=== PATIENT | female | born 1985 | race Native Hawaiian/Other Pacific Islander ===

== ENCOUNTER 2018-10-04 15:14 | Outpatient (CLI) | payer MEDICAID ==
[2018-10-04 16:03] LABS: APPEARANCE,URINE SLIGHTLY-CLOUDY; BILIRUBIN,URINE NEGATIVE (NEGATIVE); COLOR,URINE YELLOW; GLUCOSE, URINE NEGATIVE (NEGATIVE); KETONES,URINE TRACE mg/dL (NEGATIVE); LEUKOCYTE ESTERASE,URINE NEGATIVE (NEGATIVE); NITRITE,URINE NEGATIVE (NEGATIVE); PROTEIN,URINE NEGATIVE (NEGATIVE); URINE SPECIFIC GRAVITY 1.015; UROBILINOGEN,URINE NEGATIVE mg/dL (<2.0)
[2018-10-04 16:17] LABS: URINE AMPHETAMINES SCREEN NEGATIVE; URINE BARBITURATES SCREEN NEGATIVE; URINE BENZODIAZEPINES SCREEN NEGATIVE; URINE COCAINE SCREEN NEGATIVE; URINE MARIJUANA (THC) SCREEN NEGATIVE; URINE METHADONE SCREEN NEGATIVE; URINE PHENCYCLIDINE SCREEN NEGATIVE
--- NOTE | 2018-10-04 17:37 | RADIOLOGY REPORT (SQ) ---
EXAM DESCRIPTION: U/S OB LIMITED COMPLETED DATE/TIME: 10/04/2018 5:17 pm REASON FOR STUDY: cervical length. contractions COMPARISON: None. TECHNIQUE: Limited transabdominal grayscale ultrasound for evaluation of specific requested obstetri ayan parameters. LIMITATIONS: None. FINDINGS: CERVICAL LENGTH: 4.0 cm Closed. LAMONTE: 13 cm. FHR: 126 beats per minute. PRESENTATION: Cephalic. PLACENTA: Posterior ANATOMY: Not assessed OTHER: Composite ultrasound age 28 weeks 0 days. EFW 1110 g. IMPRESSION: LIMITED OBSTETRICAL ULTRASOUND WITH MEASURED PARAMETERS DELINEATED ABOVE. Trimester of : Third trimester - 28 weeks to delivery. TECHNICAL DOCUMENTATION: JOB ID: [id number] [id number] 2010 [employer]- All Rights Reserved Reading location - IP/workstation name: [email or web address]
== END 2018-10-04 17:41 | disposition home or self-care (01) ==
LOC: LC 15:14
PROVIDERS: ATTEND Obstetrics & Gynecology Gynecology
PROC: 4A1HXCZ Monitoring of Products of Conception, Cardiac Rate, External Approach (ICD-10-PCS; principal; 2018-10-04)
DX: O47.02 False labor before 37 completed weeks of gestation, second trimester (principal); Z3A.26 26 weeks gestation of pregnancy
CPT/HCPCS: 76815; 80307; 81001

== ENCOUNTER 2018-11-20 20:44 | Observation (INO) | payer MEDICAID ==
[2018-11-20] MEDS ORDERED: BETAMET ACET/BETAMET NA INJ 6 MG/1 ML IM ONE (21:16)
[2018-11-20] MEDS ORDERED: BETAMET ACET/BETAMET NA INJ 6 MG/1 ML ONE (21:19)
[2018-11-20 21:43] LABS: URINE AMPHETAMINES SCREEN NEGATIVE; URINE BARBITURATES SCREEN NEGATIVE; URINE BENZODIAZEPINES SCREEN NEGATIVE; URINE COCAINE SCREEN NEGATIVE; URINE MARIJUANA (THC) SCREEN NEGATIVE; URINE METHADONE SCREEN NEGATIVE; URINE PHENCYCLIDINE SCREEN NEGATIVE
[2018-11-20 21:44] LABS: APPEARANCE,URINE CLEAR; BILIRUBIN,URINE NEGATIVE (NEGATIVE); COLOR,URINE STRAW; GLUCOSE, URINE NEGATIVE (NEGATIVE); KETONES,URINE NEGATIVE (NEGATIVE); URINE SPECIFIC GRAVITY 1.012
[2018-11-20 21:45] LABS: LEUKOCYTE ESTERASE,URINE NEGATIVE (NEGATIVE); NITRITE,URINE NEGATIVE (NEGATIVE); PROTEIN,URINE NEGATIVE (NEGATIVE); UROBILINOGEN,URINE NEGATIVE mg/dL (<2.0)
[2018-11-20] MEDS ORDERED: HYDROXYZINE PAMOATE 50 MG CAPSULE PO ONE (22:36)
[2018-11-20] MEDS ORDERED: HYDROXYZINE PAMOATE 50 MG CAPSULE ONE (22:37)
--- NOTE | 2018-11-20 23:02 | RADIOLOGY REPORT (SQ) ---
EXAM DESCRIPTION: US LIMITED COMPLETED DATE/TME: 11/20/2018 00:00 CLINICAL HISTORY: 33 years, Female, vaginal bleeding COMPARISON: None. TECHNIQUE: Axial 2-D grayscale images of the pelvis were obtained. Doppler was utilized. LIMITATIONS: None. FINDINGS: Cervix is closed, measuring 3.5 cm in length. A single intrauterine fetus is identified. Measurements are as follows: Head circumference: 31.14 cm Biparietal diameter: 8.49 cm Abdominal circumference: 29.03 cm Femoral length: 6.38 cm Amniotic fluid index is 12.2 cm heart rate is 117 bpm Placenta is posterior in location, grade 2 Estimated gestational age is 33 weeks and 2 days with an estimated weight of 4 pounds and 12 ounces position is vertex. No other suspicious findings are identified. IMPRESSION: Single viable intrauterine , as above described. No acute sonographic finding. copyright 2010 [employer] All Rights Reserved
[2018-11-20 23:16] LABS: CHLAM PCR NOT DETECTED (NOT DETECT)
[2018-11-21] MEDS ORDERED: RINGERS SOLUTION,LACTATED 1,000 ML IV PRN (00:01)
--- NOTE | 2018-11-21 00:37 | Non Stress Test Report ---
Non Stress Test Datetime Report Generated by CPN: 11/21/2018 00:37 DEMOGRAPHIC EGA NST: 33.2 INDICATION Indication for Study: Ordered by Provider URINE RESULTS Urine Protein, NST: Negative Urine Ketones - NST: Negative Urine Glucose - NST: Negative Urine Blood - NST: Positive MONITORING Monitor Explained: Monitor Explained; Test Explained; Patient Verbalized Understanding Time on Monitor: 11/20/2018 21:02 Time off Monitor: 11/20/2018 23:58 NST Duration: 176 NST INTERVENTIONS NST Interventions: IV Fluids Physician Notified NST: Tom BABY A: [id number] BABY A Movement : Present FHR Baseline : 120 Accelerations : 15X15 Decelerations : None Variability : Moderate 6-25bpm NST Review: Meets Criteria for Reactive NST NST Review and Verified By : MERCED Kapoor NST Results: Reactive NST REPORT Report Trigger: Send Report
[2018-11-21 01:27] VITALS: BP 109/65
--- NOTE | 2018-11-21 03:45 | Admission Physical ---
Datetime Report Generated by CPN: 11/21/2018 03:45 CURRENT ADMISSION Chief Complaint: Uterine Contractions; Vaginal Bleeding Indication for Induction: Not Applicable Admit Impression : , Intrauterine ; Observation/Evaluation Admit Plan: Admit to Unit; Observation/Evaluation ALLERGIES Medication Allergies: Yes Medication Allergies: Penicillins/SV/swells the thro (10/04/2018) Latex: No Latex Allergies Food Allergies: None Environmental Allergies: None OBSTETRICAL HISTORY EDC: 01/06/2019 00:00 : 4 Para: 3 Term: 2 : 1 Ectopic: 0 Cesareans: 1 VBACs: 1 Multiple Births: 0 Gestational Diabetes: No Rh Sensitization: No Incompetent Cervix: No MEGAN: No Infertility: No ART Treatment: No Uterine Anomaly: No IUGR: No Hx Previous C/S: Yes Macrosomia: Yes Hx Loss/Stillborn: No PIH: No Hx : No Placenta Previa/Abruption: No Depression/PP Depression: Yes PTL/PROM: Yes Post Hemorrhage: No Current Procedures: Ultrasound Obstetrical History Comments: G1- 2003, @ 40 weeks G2- 2009, , 10lbs 0oz @ 42.5 weeks G3- 2015, , Deliveried at 34 weeks, PROM G4- Current, P17 starting at 17 weeks gestation, chronic anemia. SEE RECORDS Alcohol: No Marijuana : No Cocaine: No Other Illicit Drugs: No Cigarettes: Former Smoker. [id number] MEDICAL HISTORY Diabetes: No Blood Transfusion: Yes Pulmonary Disease (Asthma, TB): No Breast Disease: No Hypertension: No Manager Drug Surgery: No Heart Disease: No Hosp/Surgery: Yes Autoimmune Disorder: No Anesthetic Complications: No Kidney Disease: No Abnormal Pap Smear: No Neuro/Epilepsy: No Psychiatric Disorders: No Other Medical Diseases: No Hepatitis/Liver Disease: No Significant Family History: No Varicosities/Phlebitis: No Trauma/Violence : No Thyroid Dysfunction: No Medical History Comments: Blood transfusion 2015 for anemia , Hospitalization for childbirth INFECTIOUS HISTORY Gonorrhea: No Genital Herpes: No Chlamydia: No Tuberculosis: No Syphilis: No Hepatitis: No HIV/AIDS Exposure: No Rash or Viral Illness: No HPV: No PHYSICAL EXAM General: Normal HEENT: Normal Neurologic: Normal Thyroid: Normal Heart: Normal Lungs: Normal Breast: Normal Back: Normal Abdomen: Normal Genitourinary Exam: Normal Extremities: Normal DTRs: Normal Pelvic Type: Adequate Vital Signs: Within Normal Limits MEMBRANES Pooling: Negative Membranes: Intact FETUS A EGA: 33.3 Monitoring: External US FHR- Baseline: 120 Variability: Moderate 6-25bpm Accelerations: 10X10 Decelerations: None FHR Category: Category I Estimated Weight (gm): 2400 Presentation: Vertex Admit Comment: presented with episode of vaginal bleeding with no obvious source. Irregular contractions noted during evaluation. Amnisure negative. CL reassuring. GC/CZ neg. Steroids given. Admit for observation and completion of steroid protocol. PLANS FOR LABOR AND DELIVERY Labor and Delivery: None Pain Management: Epidural Feeding Preference: Breast Benefit of Breast Feed Discussed: Yes Circumcision: Yes INFORMED CONSENT Signature: with User ID: [email or web address]
--- NOTE | 2018-11-21 08:08 | PDOC DISCHARGE SUMMARY ---
General - Admit/Disc Date/PCP Admission Date/Primary Care Provider: 11/21/18 00:00 DEJAN DELGADO MD Discharge Date: 11/21/18 - Discharge Diagnosis (1) Is this a current diagnosis for this admission?: Yes (2) Vaginal bleeding during Is this a current diagnosis for this admission?: Yes - Additional Information Home Medications: Ferrous Sulfate [Iron] 1 tab PO DAILY 10/04/18 Pnv No.95/Ferrous Fum/Folic AC [ Vitamin Tablet] 1 tab PO DAILY 10/04/18 History of Present Illness History of Present Illness: SHANTANU RODRIGUEZ is a 33 year old female Hospital Course Hospital Course: presented with 2 hours of vaginal bleeding. workup negative including GC/CZ, CL of 3.7, negative amnisure. Patient admitted for OBS to receive steroids. Overnight pt had no further bleeding and contractions spaced out to irregular pattern at most. Patient notified staff that she desired to go home. Counseled that preferably she would stay to get second dose of steroids before discharge but insisting on going home. Counseled on pain, contractions, further bleeding to return sooner. Will allow discharge home. Physical Exam - Physical Exam Vital Signs: Temp Pulse Resp BP Pulse Ox 97.6 F 90 18 109/65 99 11/21/18 00:58 11/21/18 00:58 11/21/18 00:58 11/21/18 00:58 11/21/18 00:58 Result Laboratory Results: 11/20/18 21:00 Urine Color STRAW Urine Appearance CLEAR Urine pH 6.0 Ur Specific [place] 1.012 Urine Protein NEGATIVE Urine Glucose (UA) NEGATIVE Urine Ketones NEGATIVE Urine Blood LARGE H Urine Nitrite NEGATIVE Ur Leukocyte Esterase NEGATIVE Urine WBC (Auto) 2 Urine RBC (Auto) >182 Impressions: Obstetrics Ultrasound 11/20/18 00:00 IMPRESSION: Single viable intrauterine , as above described. No acute sonographic finding. copyright 2011 [employer]- All Rights Reserved Plan Discharge Plan: return this evening for second celestone injection for FLM Time Spent: Less than 30 Minutes Acute Heart Failure - Is this a Heart Failure Patient?: No
[2018-11-21] MEDS ORDERED: BETAMET ACET/BETAMET NA INJ 6 MG/1 ML IM ONE (21:35)
== END 2018-11-21 07:35 | disposition home or self-care (01) ==
LOC: LC 20:44 → LR 11-21 → 2N 11-21 00:39 → LR 11-21 04:00
PROVIDERS: ADMIT Obstetrics & Gynecology; ATTEND Obstetrics & Gynecology
PROC: 4A0HXCZ Measurement of Products of Conception, Cardiac Rate, External Approach (ICD-10-PCS; principal; 2018-11-21)
DX: O46.93 Antepartum hemorrhage, unspecified, third trimester (principal); O47.03 False labor before 37 completed weeks of gestation, third trimester; Z3A.33 33 weeks gestation of pregnancy
CPT/HCPCS: 59025; 96372; 81001; 87081; 80307; 87491; 87591; 84112; 76815; G0378; J3490 ×2; J0702; J7120

== ENCOUNTER 2018-11-21 20:55 | Outpatient (CLI) | payer MEDICAID ==
[2018-11-21] MEDS ORDERED: BETAMET ACET/BETAMET NA INJ 6 MG/1 ML IM ONE (21:06)
[2018-11-21] MEDS ORDERED: BETAMET ACET/BETAMET NA INJ 6 MG/1 ML ONE ×2 (21:32→21:33)
[2018-11-21 21:37] LABS: APPEARANCE,URINE HAZY; BILIRUBIN,URINE NEGATIVE (NEGATIVE); COLOR,URINE YELLOW; GLUCOSE, URINE NEGATIVE (NEGATIVE); KETONES,URINE NEGATIVE (NEGATIVE); LEUKOCYTE ESTERASE,URINE NEGATIVE (NEGATIVE); NITRITE,URINE NEGATIVE (NEGATIVE); PROTEIN,URINE NEGATIVE (NEGATIVE); URINE SPECIFIC GRAVITY 1.014; UROBILINOGEN,URINE NEGATIVE mg/dL (<2.0)
[2018-11-21 21:41] LABS: URINE AMPHETAMINES SCREEN NEGATIVE; URINE BARBITURATES SCREEN NEGATIVE; URINE BENZODIAZEPINES SCREEN NEGATIVE; URINE COCAINE SCREEN NEGATIVE; URINE MARIJUANA (THC) SCREEN NEGATIVE; URINE METHADONE SCREEN NEGATIVE; URINE PHENCYCLIDINE SCREEN NEGATIVE
--- NOTE | 2018-11-21 22:23 | Non Stress Test Report ---
Non Stress Test Datetime Report Generated by CPN: 11/21/2018 22:23 DEMOGRAPHIC EGA NST: 33.3 INDICATION Indication for Study: labor; Other Indication for Study (NST) Other: betamethasone admin 2nd dose URINE RESULTS Urine Protein, NST: Negative Urine Ketones - NST: Negative Urine Glucose - NST: Negative Urine Blood - NST: Negative MONITORING Monitor Explained: Monitor Explained; Test Explained; Patient Verbalized Understanding Time on Monitor: 11/21/2018 21:10 Time off Monitor: 11/21/2018 22:12 NST Duration: 62 NST INTERVENTIONS NST Interventions: PO Hydration Physician Notified NST: K.Welch BABY A: [id number] BABY A Movement : Present Contraction Frequency : one per hour FHR Baseline : 135 Accelerations : 15X15 Decelerations : None Variability : Moderate 6-25bpm NST Review and Verified By : Solomon Sanz RN NST Results: Reactive NST REPORT Report Trigger: Send Report
== END 2018-11-21 22:16 | disposition home or self-care (01) ==
LOC: LC 20:55
PROVIDERS: ATTEND Student in an Organized Health Care Education/Training Program
PROC: 4A1HXCZ Monitoring of Products of Conception, Cardiac Rate, External Approach (ICD-10-PCS; principal; 2018-11-21)
DX: O60.03 Preterm labor without delivery, third trimester (principal); Z3A.33 33 weeks gestation of pregnancy
CPT/HCPCS: 59025; 81001; 80307; J0702

== ENCOUNTER 2018-11-27 09:02 | Outpatient (CLI) | payer MEDICAID ==
[~2018-11-27 09:02] MED LIST: FERRIC CARBOXYMALTOSE 750 MG in NORMAL SALINE 250 ML IV PRN; NORMAL SALINE 250 ML IV PRN
[2018-11-27 09:19] VITALS: BP 109/67
[2018-11-27] MEDS ORDERED: DIPHENHYDRAMINE HCL 50 MG/ML VIAL ONE (11:13)
== END 2018-11-27 10:30 | disposition home or self-care (01) ==
LOC: II 09:02 → 5TH 09:23 → II 10:30
PROVIDERS: ATTEND Dermatology
PROC: 3E033GC Introduction of Other Therapeutic Substance into Peripheral Vein, Percutaneous Approach (ICD-10-PCS; principal; 2018-11-27)
DX: O99.019 Anemia complicating pregnancy, unspecified trimester (principal)
CPT/HCPCS: 96365; J1200; J7050; J1439

== ENCOUNTER 2018-12-04 08:39 | Outpatient (CLI) | payer MEDICAID ==
[2018-12-04 09:07] VITALS: BP 133/70
== END 2018-12-04 09:42 | disposition home or self-care (01) ==
LOC: II 08:39
PROVIDERS: ATTEND Specialist
PROC: 3E033GC Introduction of Other Therapeutic Substance into Peripheral Vein, Percutaneous Approach (ICD-10-PCS; principal; 2018-12-04)
DX: O99.019 Anemia complicating pregnancy, unspecified trimester (principal)
CPT/HCPCS: 96365; J7050; J1439

== ENCOUNTER 2018-12-09 19:16 | Outpatient (CLI) | payer MEDICAID ==
[2018-12-09 19:47] LABS: APPEARANCE,URINE SLIGHTLY-CLOUDY; BILIRUBIN,URINE NEGATIVE (NEGATIVE); COLOR,URINE AMBER; GLUCOSE, URINE NEGATIVE (NEGATIVE); KETONES,URINE 80 mg/dL (NEGATIVE); LEUKOCYTE ESTERASE,URINE TRACE (NEGATIVE); NITRITE,URINE NEGATIVE (NEGATIVE); PROTEIN,URINE 30 mg/dL (NEGATIVE); URINE SPECIFIC GRAVITY 1.026
[2018-12-09 20:02] LABS: URINE AMPHETAMINES SCREEN NEGATIVE; URINE BARBITURATES SCREEN NEGATIVE; URINE BENZODIAZEPINES SCREEN NEGATIVE; URINE COCAINE SCREEN NEGATIVE; URINE MARIJUANA (THC) SCREEN NEGATIVE; URINE METHADONE SCREEN NEGATIVE; URINE PHENCYCLIDINE SCREEN NEGATIVE
--- NOTE | 2018-12-09 22:12 | Non Stress Test Report ---
Non Stress Test Datetime Report Generated by CPN: 12/09/2018 22:12 DEMOGRAPHIC EGA NST: 36.0 INDICATION Indication for Study: Other Indication for Study (NST) Other: labor check MONITORING Monitor Explained: Monitor Explained; Test Explained; Patient Verbalized Understanding Time on Monitor: 12/09/2018 19:30 Time off Monitor: 12/09/2018 21:51 NST Duration: 141 NST INTERVENTIONS NST Interventions: PO Hydration BABY A: [id number] BABY A Movement : Present Contraction Frequency : irreg 3-6mins FHR Baseline : 130 Accelerations : 15X15 Decelerations : None Variability : Moderate 6-25bpm NST Review: Meets Criteria for Reactive NST NST Review and Verified By : MERCED Mcpherson NSJocelyne Results: Reactive NST REPORT Report Trigger: Send Report
== END 2018-12-09 21:57 | disposition home or self-care (01) ==
LOC: LC 19:16
PROVIDERS: ATTEND Student in an Organized Health Care Education/Training Program
PROC: 4A1HXCZ Monitoring of Products of Conception, Cardiac Rate, External Approach (ICD-10-PCS; principal; 2018-12-09)
DX: O47.03 False labor before 37 completed weeks of gestation, third trimester (principal); Z3A.36 36 weeks gestation of pregnancy
CPT/HCPCS: 59025; 80307; 81005

== ENCOUNTER 2018-12-11 22:17 | Inpatient (IN) | payer MEDICAID ==
--- NOTE | 2018-12-11 23:00 | Admission Physical ---
Datetime Report Generated by CPN: 12/11/2018 23:00 CURRENT ADMISSION Chief Complaint: Suspected Ruptured Membranes Chief Complaint Other: "my water broke at 10:00" Indication for Induction: Not Applicable Admit Impression : , Intrauterine ; Active Labor Admit Plan: Admit to Unit; Initiate Labor Protocol ALLERGIES Medication Allergies: Yes Medication Allergies: Penicillins/SV/swells the thro (12/11/2018) Latex: No Latex Allergies Food Allergies: None Environmental Allergies: None OBSTETRICAL HISTORY EDC: 01/06/2019 00:00 : 4 Para: 3 Term: 2 : 1 Ectopic: 0 Livin Cesareans: 1 VBACs: 1 Multiple Births: 0 Gestational Diabetes: No Rh Sensitization: No Incompetent Cervix: No MEGAN: No Infertility: No ART Treatment: No Uterine Anomaly: No IUGR: No Hx Previous C/S: Yes Macrosomia: Yes Hx Loss/Stillborn: No PIH: No Hx : No Placenta Previa/Abruption: No Depression/PP Depression: Yes PTL/PROM: Yes Post Hemorrhage: No Current Procedures: Ultrasound Obstetrical History Comments: G1- 2003, @ 40 weeks G2- 2009, , 10lbs 0oz @ 42.5 weeks G3- 2015, , Deliveried at 34 weeks, PROM G4- Current, P17 starting at 17 weeks gestation, chronic anemia. SEE RECORDS Alcohol: No Marijuana : No Cocaine: No Other Illicit Drugs: No Cigarettes: Former Smoker. [id number] MEDICAL HISTORY Diabetes: No Blood Transfusion: Yes Pulmonary Disease (Asthma, TB): No Breast Disease: No Hypertension: No Computer System Technician Surgery: No Heart Disease: No Hosp/Surgery: Yes Autoimmune Disorder: No Anesthetic Complications: No Kidney Disease: No Abnormal Pap Smear: No Neuro/Epilepsy: No Psychiatric Disorders: No Other Medical Diseases: No Hepatitis/Liver Disease: No Significant Family History: No Varicosities/Phlebitis: No Trauma/Violence : No Thyroid Dysfunction: No Medical History Comments: Blood transfusion 2016 for anemia , Hospitalization for childbirth INFECTIOUS HISTORY Gonorrhea: No Genital Herpes: No Chlamydia: No Tuberculosis: No Syphilis: No Hepatitis: No HIV/AIDS Exposure: No Rash or Viral Illness: No HPV: No PHYSICAL EXAM General: Normal HEENT: Normal Neurologic: Normal Thyroid: Normal Heart: Normal Lungs: Normal Breast: Normal Back: Normal Abdomen: Normal Genitourinary Exam: Normal Extremities: Normal DTRs: Normal Pelvic Type: Adequate Vital Signs: Reviewed; Within Normal Limits VAGINAL EXAM Dilatation: 4 Effacement: 50 Station: -2 Contraction Comments: irregular MEMBRANES Pooling: Positive Membranes: Ruptured Amniotic Fluid Color: Clear FETUS A EGA: 36.2 Monitoring: External US FHR- Baseline: 120s Variability: Moderate 6-25bpm Accelerations: 15X15 Decelerations: None FHR Category: Category I Estimated Weight (gm): 2400 Presentation: Vertex Admit Comment: with an IUP at 36-2/7 wks presents to the L_D c/o that her water broke at 2200, while at the movies. She reports good movement. GBS unknown. She is annemarie irregularly. She has no other co-morbidities. PLANS FOR LABOR AND DELIVERY Labor and Delivery: None Pain Management: Epidural Feeding Preference: Breast Benefit of Breast Feed Discussed: Yes Circumcision: Yes INFORMED CONSENT Signature: with User ID: Carlos
[2018-12-11] MEDS ORDERED: CLINDAMYCIN 900 MG/D5W RTU 900 MG/50 ML RTUPB IV ONE ×2 (23:22→23:30)
[2018-12-11] MEDS ORDERED: LIDOCAINE 1% INJ-PF (10 MG/ML) 30 ML SDV ONE (23:26)
[2018-12-11] MEDS ORDERED: OXYTOCIN 10 UNIT/ML VIAL ONE (23:26)
[2018-12-11] MEDS ORDERED: OXYTOCIN/NORMAL SALINE 20 UNIT/1,000 ML RTUINJ ONE (23:26)
[2018-12-11] MEDS ORDERED: MISOPROSTOL 0.2 MG TABLET ONE (23:26)
[2018-12-11] MEDS ORDERED: RINGERS SOLUTION,LACTATED 1,000 ML IV ONE (23:30)
[2018-12-11 23:45] LABS: URINE AMPHETAMINES SCREEN NEGATIVE; URINE BARBITURATES SCREEN NEGATIVE; URINE BENZODIAZEPINES SCREEN NEGATIVE; URINE COCAINE SCREEN NEGATIVE; URINE MARIJUANA (THC) SCREEN NEGATIVE; URINE METHADONE SCREEN NEGATIVE; URINE PHENCYCLIDINE SCREEN NEGATIVE
[2018-12-11 23:46] LABS: HEMOGLOBIN 9.4 g/dL (12.0-15.5); MEAN CORPUSCULAR HEMOGLOBIN 25.5 pg (27.0-33.4); MEAN CORPUSCULAR HGB CONC 33.6 g/dL (32.0-36.0); MEAN CORPUSCULAR VOLUME 76 fl (80-97); PLATELET COUNT 141 10^3/uL (150-450); RED BLOOD COUNT 3.69 10^6/uL (3.72-5.28); RED CELL DISTRIBUTION WIDTH 24.2 % (11.5-14.0); WHITE BLOOD COUNT 5.8 10^3/uL (4.0-10.5)
[2018-12-12 00:01] LABS: ABSOLUTE LYMPHOCYTES# (MANUAL) 1.2 10^3/uL (0.5-4.7); ABSOLUTE MONOCYTES # (MANUAL) 0.7 10^3/uL (0.1-1.4); ANISOCYTOSIS 3+; BAND NEUTROPHILS % (MANUAL) 3 % (3-5); BASOPHILS % (MANUAL) 1 % (0-2); EOSINOPHILS % (MANUAL) 1 % (0-6); HYPOCHROMASIA 2+; LYMPHOCYTES % (MANUAL) 20 % (13-45); MONOCYTES % (MANUAL) 12 % (3-13); POLYCHROMASIA 1+; SEGMENTED NEUTROPHILS % (MAN) 62 % (42-78); TOTAL CELLS COUNTED 100
[2018-12-12 00:02] LABS: PLATELET COMMENT ADEQUATE
[2018-12-12 00:17] LABS: APPEARANCE,URINE CLOUDY; BILIRUBIN,URINE NEGATIVE (NEGATIVE); COLOR,URINE YELLOW; GLUCOSE, URINE NEGATIVE (NEGATIVE); KETONES,URINE NEGATIVE (NEGATIVE); LEUKOCYTE ESTERASE,URINE NEGATIVE (NEGATIVE); NITRITE,URINE NEGATIVE (NEGATIVE); PROTEIN,URINE 100 mg/dL (NEGATIVE); URINE SPECIFIC GRAVITY 1.006; UROBILINOGEN,URINE NEGATIVE mg/dL (<2.0)
[2018-12-12] MEDS ORDERED: OXYTOCIN/NORMAL SALINE 20 UNIT/1,000 ML RTUINJ IV PRN ×2 (00:23→17:48)
[2018-12-12] MEDS ORDERED: RINGERS SOLUTION,LACTATED 1,000 ML IV PRN (00:49)
[2018-12-12] MEDS ORDERED: FENTANYL CITRATE INJ/PF 100 MCG/2 ML AMPUL ONE (01:13)
[2018-12-12] MEDS ORDERED: PHENYLEPHRINE HCL INJ/PF 10 MG/1 ML SDV ONE (01:13)
[2018-12-12] MEDS ORDERED: FENTANYL/BUPIVACAINE/NS/PF 300 MCG/150 ML RTUINJ EPI ONE ×2 (01:14→14:21)
[2018-12-12] MEDS ORDERED: BUPIVACAINE HCL 0.25 % INJ/PF (2.5 MG/1 ML) 30 ML VIAL ONE (01:14)
[2018-12-12] MEDS ORDERED: EPHEDRINE SULFATE INJ 50 MG/1 ML AMPULE ONE (01:14)
[2018-12-12] MEDS ORDERED: CLINDAMYCIN 900 MG/D5W RTU 900 MG/50 ML RTUPB IV ONE ×2 (07:29→15:32)
[2018-12-12] MEDS: CLINDAMYCIN 900 MG/D5W RTU 900 MG/50 ML RTUPB IV SCH ×2 (07:41→15:34)
[2018-12-12] MEDS ORDERED: OXYTOCIN/NORMAL SALINE 20 UNIT/1,000 ML RTUINJ ONE (13:18)
[2018-12-12] MEDS ORDERED: ACETAMINOPHEN 650 MG SUPP.RECT PR PRN (17:48)
[2018-12-12] MEDS ORDERED: PROMETHAZINE HCL 25 MG TABLET PO PRN (17:48)
[2018-12-12] MEDS ORDERED: BENZOCAINE/MENTHOL AEROSOL SPRAY 56 ML TOP PRN (17:48)
[2018-12-12] MEDS ORDERED: PROMETHAZINE HCL INJ 25 MG/1 ML VIAL IV PRN (17:48)
[2018-12-12] MEDS ORDERED: DIPHENHYDRAMINE HCL 25 MG CAPSULE PO PRN (17:48)
[2018-12-12] MEDS ORDERED: PROMETHAZINE HCL 25 MG SUPP.RECT PR PRN (17:48)
[2018-12-12] MEDS ORDERED: NA PHOS,M-B/NA PHOS,DI-BA (ADULT) 133 ML ENEMA PR PRN (17:48)
[2018-12-12] MEDS ORDERED: MEASLES,MUMPS&RUBELLA VACC/PF 0.5 ML VIAL SUBCUT PRN (17:48)
[2018-12-12] MEDS ORDERED: ZOLPIDEM TARTRATE 5 MG TABLET PO PRN (17:48)
[2018-12-12] MEDS ORDERED: ACETAMINOPHEN WITH CODEINE #3 TABLET PO PRN ×2 (17:48)
[2018-12-12] MEDS ORDERED: PSEUDOEPHEDRINE HCL 30 MG TABLET PO PRN (17:48)
[2018-12-12] MEDS ORDERED: DIPH/PERTUSS(ACELL)/TETANUS VAC/PF 0.5 ML SYR (>=10YO) IM PRN (17:48)
[2018-12-12] MEDS ORDERED: DIBUCAINE 1% OINTMENT 56 GM TP PRN (17:48)
[2018-12-12] MEDS ORDERED: GLYCERIN/WITCH HAZEL LEAF 1 EACH MED..WIPE TP PRN (17:48)
[2018-12-12] MEDS ORDERED: MAGNESIUM HYDROXIDE SUSP 30 ML UDCUP PO PRN (17:48)
--- NOTE | 2018-12-12 18:02 | Warning Signs in Babies ---
VOD Warning Signs Datetime Report Generated by [facility]: 12/12/2018 18:01 VOD#608 -Warning Signs in Babies: Viewed with Parent(s)/Family (12/12/2018 17:50:Denae Hilton RN)
[2018-12-12] MEDS ORDERED: BENZOCAINE/MENTHOL AEROSOL SPRAY 56 ML ONE (18:50)
--- NOTE | 2018-12-12 18:59 | Delivery Summary ---
Del Sum A-C Datetime Report Generated by CPN: 12/12/2018 18:59 DELIVERY PERSONNEL DELIVERY PERSONNEL: [id number] Delivery Doctor:: Aimee Sanot MD Labor and Delivery Nurse:: Denae Hilton RNcharge account authorizer Nurse:: Trista Zarate RN Criminal Profiler/MANAGER COMMERCIAL REAL ESTATE: Radha Quarles, [employer] CREWMEMBER MATERNAL INFORMATION Delivery Anesthesia: Epidural Medications After Delivery: Pitocin Drip 20 Units/1000ml NSS Estimated Blood Loss (ml): 300 Delivery QBL: 300 Maternal Complications: None Provider Comments: placed on mom's abdomen after delivery to promote bonding and better transition. Delayed cord clamping performed. Cord blood collected. Repair of 2nd degree vaginal laceration after use of local. Patient and tolerated procedure well. [place] on maternal abdomen bonding/transitioning well. LABOR SUMMARY EDC: 01/06/2019 00:00 No. Babies in Womb: 1 Attempted: Yes Labor Anesthesia: Epidural LABOR INFORMATION Reason for Induction: Not Applicable Onset of Labor: 12/12/2018 15:00 Complete Dilatation: 12/12/2018 17:06 Cervical Ripening Agents: Cytotec @ 50 mcg po Oxytocin: Augmentation Group B Beta Strep: 1 NO GROUP B STREPTOCOCCUS RECOVERED Antibiotics # of Doses: 2 Antibiotics Time of Last Dose: 1536 Name of Antibiotic Given: clindamycin Steroids Given: Full Course Reason Steroids Not Administered: Maternal Indication MEMBRANES Membranes Rupture Method: Artificial Rupture of Membranes: 12/11/2018 22:10 Length of Rupture (hr): 19.10 Amniotic Fluid Color: Clear Amniotic Fluid Amount: Scant Amniotic Fluid Odor: None STAGES OF LABOR Stage 1 hr: 2 Stage 1 min: 6 Stage 2 hr: 0 Stage 2 min: 10 Stage 3 hr: 0 Stage 3 min: 3 Total Time in Labor hr: 2 Total Time in Labor min: 19 VAGINAL DELIVERY Episiotomy: None Laceration #1: Vaginal Laceration Extension #1: Second Degree Laceration Repair: Yes Laceration Repair Note: Repair of 2nd degree vaginal with extension to inferior portion of the left labia minora. Repaired with 2-0 vicryl with running locked suture for hemostasis. Local anesthetic used prior to repair 2nd to epidural not working. Sponge Count Correct: N/A Sharps Count Correct: Yes Count Comment: Lap, 4x4 and sharps all accounted for after delivery CSECTION DELIVERY Primary Indication: N/A Secondary Indication: N/A CSection Incidence: N/A Labor: N/A Elective: N/A CSection Incision: N/A BABY A INFORMATION Infant Delivery Date/Time: 12/12/2018 17:16 Method of Delivery: Vaginal Born in Route : No : Successful Forceps: N/A Vacuum Extraction: N/A Shoulder Dystocia : No PRESENTATION/POSITION BABY A Presentation: Cephalic Cephalic Presentation: Vertex Vertex Position: Right Occipital Anterior Breech Presentation: N/A PLACENTA INFORMATION BABY A Placenta Delivery Time : 12/12/2018 17:19 Placenta Method of Delivery: Expressed Placenta Status: Delivered SCORES BABY A Heart Rate 1 min: >100 bpm Resp Effort 1 min: Good Cry Reflex Irritability 1 min: Cough or Sneeze or Pulls Away Muscle Tone 1 min: Active Motion Color 1 min: Body [place], Extremities Blue Resuscitation Effort 1 min: Tactile Stimulation SCORE 1 MIN: 9 Heart Rate 5 min: >100 bpm Resp Effort 5 min: Good Cry Reflex Irritability 5 min: Cough or Sneeze or Pulls Away Muscle Tone 5 min: Active Motion Color 5 min: Body [place], Extremities Blue SCORE 5 MIN: 9 INFORMATION BABY A Gestational Age at Delivery: 36.3 Gestational Status: Late - 34- 36.6 Weeks Outcome : Liveborn Condition : Stable Sex: Male IDENTIFICATION BABY A Infant Verification Date/Time: 12/12/2018 17:16 ID Band Number: [id number] Mother's Name Verified: Yes RN Verifying Infant: B Sissy RN/M Yobani RN CORD INFORMATION BABY A No. Cord Vessels: 3 Nuchal Cord : N/A Cord Blood Taken: Yes-For Eval (Mom's Blood Type - or O+) Infant Suction: Mouth; Nose (Annotations: Data stored by [facility] on behalf of user) ASSESSMENT BABY A Infant Complications: None Physical Findings at Delivery: [place]ones[place] Spots Infant Respirations: Appears Normal Skin to Skin: Yes Hr Administrator/ALS Called : No Infant Care By: V Monk RN BABY B INFORMATION : N/A SIGNATURES Signature: with User ID: [email or web address]
[2018-12-12] MEDS: IBUPROFEN 800 MG TABLET PO SCH (22:25)
[2018-12-12] MEDS: FAMOTIDINE 20 MG TABLET PO SCH (22:25)
[2018-12-12] MEDS: DOCUSATE SODIUM 100 MG CAPSULE PO SCH (22:39)
[2018-12-12] MEDS: FERROUS SULFATE 325 MG TABLET PO SCH (22:39)
[2018-12-13] MEDS: IBUPROFEN 800 MG TABLET PO SCH ×3 (06:04→21:51)
[2018-12-13 07:38] LABS: HEMOGLOBIN 9.9 g/dL (12.0-15.5); MEAN CORPUSCULAR HEMOGLOBIN 25.7 pg (27.0-33.4); MEAN CORPUSCULAR HGB CONC 34.1 g/dL (32.0-36.0); MEAN CORPUSCULAR VOLUME 75 fl (80-97); PLATELET COUNT 167 10^3/uL (150-450); RED BLOOD COUNT 3.85 10^6/uL (3.72-5.28); RED CELL DISTRIBUTION WIDTH 25.4 % (11.5-14.0); WHITE BLOOD COUNT 8.1 10^3/uL (4.0-10.5)
--- NOTE | 2018-12-13 08:53 | PDOC PROGRESS REPORT ---
Subjective-OB Progress Note for:: 12/13/18 Subjective: Doing well, no c/o, ready to go home, voiding, eating well Physical Exam (OB) Vital Signs: Temp Pulse Resp BP Pulse Ox 99.2 F 88 16 117/68 99 12/12/18 20:20 12/12/18 20:20 12/12/18 20:20 12/12/18 20:20 12/12/18 20:20 Intake & Output 12/12/18 12/13/18 12/14/18 06:59 06:59 06:59 Intake Total 50 Balance 50 Weight 99.9 kg - PIH/Pre-Eclampsia Headache: Absent Epigastric Pain: No Visual Changes: No - Lochia Lochia Amount: Small 10-25 ml Lochia Color: Rubra/Red - Abdomen Description: Soft Hernia Present: No Fundal Description: Firm, Midline Fundal Height: u/u - u/2 Objective-Diagnostic Laboratory: 12/13/18 06:40 12/13/18 06:40 WBC 8.1 RBC 3.85 Hgb 9.9 L Hct 29.0 L MCV 75 L MCH 25.7 L MCHC 34.1 RDW 25.4 H Plt Count 167 Assessment and Plan(PN) - Assessment and Plan (1) Vaginal bleeding Is this a current diagnosis for this admission?: Yes - Time Spent with Patient Time with patient: Less than 15 minutes Medications reviewed and adjusted accordingly: Yes - Disposition Anticipated Discharge: Home Within: within 24 hours
[2018-12-13] MEDS: SENNOSIDES/DOCUSATE 8.6-50 MG 1 EACH TABLET PO SCH (09:32)
[2018-12-13] MEDS: PRENATAL VITAMIN W DHA CAPSULE PO SCH (09:32)
[2018-12-13] MEDS: DOCUSATE SODIUM 100 MG CAPSULE PO SCH ×2 (09:32→17:56)
[2018-12-13] MEDS: FERROUS SULFATE 325 MG TABLET PO SCH ×2 (09:32→17:56)
[2018-12-13] MEDS: FAMOTIDINE 20 MG TABLET PO SCH ×2 (09:32→21:51)
[2018-12-14] MEDS: IBUPROFEN 800 MG TABLET PO SCH ×2 (06:55→13:49)
[2018-12-14 08:10] VITALS: BP 110/72
[2018-12-14] MEDS: SENNOSIDES/DOCUSATE 8.6-50 MG 1 EACH TABLET PO SCH (09:25)
[2018-12-14] MEDS: FERROUS SULFATE 325 MG TABLET PO SCH ×2 (09:25→17:44)
[2018-12-14] MEDS: PRENATAL VITAMIN W DHA CAPSULE PO SCH (09:25)
[2018-12-14] MEDS: FAMOTIDINE 20 MG TABLET PO SCH (09:25)
[2018-12-14] MEDS: DOCUSATE SODIUM 100 MG CAPSULE PO SCH ×2 (09:25→17:44)
--- NOTE | 2018-12-14 09:47 | PDOC DISCHARGE SUMMARY ---
Final Diagnosis Discharge Date: 12/14/18 - Final Diagnosis (1) Anemia complicating , third trimester Is this a current diagnosis for this admission?: Yes (2) Obstetric labial laceration, delivered, current hospitalization Is this a current diagnosis for this admission?: Yes (3) Obstetric vaginal laceration with second degree perineal laceration Is this a current diagnosis for this admission?: Yes (4) delivery Is this a current diagnosis for this admission?: Yes (5) premature rupture of membranes (PPROM) delivered, current hospitalization Is this a current diagnosis for this admission?: Yes (6) (vaginal after ) Is this a current diagnosis for this admission?: Yes Discharge Data - Discharge Medication Prescriptions: Ibuprofen [Motrin 800 mg Tablet] 800 mg PO Q8HP PRN #30 tablet PRN Reason: Abdominal Cramping Docusate Sodium [Colace 100 mg Capsule] 100 mg PO BID #60 capsule Ferrous Sulfate [Iron] 1 tab PO BID #60 tablet Home Medications: Pnv No.95/Ferrous Fum/Folic AC [ Vitamin Tablet] 1 tab PO DAILY 10/04/18 Docusate Sodium [Colace 100 mg Capsule] 100 mg PO BID #60 capsule 12/14/18 Ferrous Sulfate [Iron] 1 tab PO BID #60 tablet 12/14/18 Ibuprofen [Motrin 800 mg Tablet] 800 mg PO Q8HP PRN #30 tablet 12/14/18 Reason(s) for Admission: Onset of Labor, Labor Procedures: Ultrasound Intrapartum Procedure(s): Spontaneous Vaginal Delivery - Complication(s): Laceration-Vaginal, Laceration-Labial Laceration-Degree: 2nd - Diagnosis Test Laboratory: Temp Pulse Resp BP Pulse Ox 97.9 F 67 16 110/72 98 12/14/18 07:32 12/14/18 07:32 12/14/18 07:32 12/14/18 07:32 12/14/18 07:32 12/11/18 12/11/18 12/13/18 22:35 23:23 06:40 RBC 3.69 L 3.85 Hgb 9.4 L 9.9 L Hct 28.0 L 29.0 L Urine Opiates Screen NEGATIVE - Discharge information/Instructions Discharge Activity: Activity As Tolerated, Balance Activity w/Rest, No Lifting Over 10 Pounds, Pelvic Rest, No tub bath, Walk Frequently Discharge Diet: As Tolerated, Regular Disposition: HOME, SELF-CARE Follow up with: [facility] in: 5, Weeks
== END 2018-12-14 22:52 | disposition home or self-care (01) | DRG 807 ==
LOC: LC 22:17 → LR 22:31 → 2S 12-12 20:03
PROVIDERS: ADMIT Obstetrics & Gynecology; ATTEND Obstetrics & Gynecology
PROC: 10E0XZZ Delivery of Products of Conception, External Approach (ICD-10-PCS; principal; 2018-12-12)
PROC: 0KQM0ZZ Repair Perineum Muscle, Open Approach (ICD-10-PCS; 2018-12-12)
DX: O60.14X0 Preterm labor third trimester with preterm delivery third trimester, not applicable or unspecified (principal); Z37.0 Single live birth; O42.913 Preterm premature rupture of membranes, unspecified as to length of time between rupture and onset of labor, third trimester; O70.1 Second degree perineal laceration during delivery; O99.02 Anemia complicating childbirth; O99.824 Streptococcus B carrier state complicating childbirth; O34.219 Maternal care for unspecified type scar from previous cesarean delivery; D64.9 Anemia, unspecified; Z3A.36 36 weeks gestation of pregnancy; Z87.891 Personal history of nicotine dependence; Z88.0 Allergy status to penicillin
CPT/HCPCS: 36415; 80307; 81005; 85025; 85027; 86592; 86850; 86900; 86901; 94760; J2370; J2590; J3010; J3490

== ENCOUNTER 2020-04-08 13:43 | Emergency (ER) | payer MEDICAID ==
--- NOTE | 2020-04-08 14:07 | ER Document Report ---
ED Medical Screen (RME) - General Chief Complaint: Weakness Stated Complaint: WEAKNESS Time Seen by Provider: 04/08/20 13:58 Primary Care Provider: RASHMI MONDRAGON MD [Primary Care Provider] - Follow up as needed Notes: Patient is a 35-year-old female presents emergency department with a chief complaint of weakness. Patient states that she has felt weak for the past few days. Patient reports that she gets 2 menstrual cycles in 1 month. Patient has history of anemia. Patient has been tested multiple times for COVID-19 [address] of employment, which is [employer] in [place]. They have all been negative. Patient states that she was treated for strep pharyngitis with azithromycin 2 days ago. States that she continues to have white spots on her tonsils. Exam: Clear breath sounds throughout all lung anderson. We will retest the patient for strep to see if it has cleared. Basic labs ordered. I have greeted and performed a rapid initial assessment of this patient. A comprehensive ED assessment and evaluation of the patient, analysis of test results and completion of medical decision making process will be conducted by an additional ED providers. TRAVEL OUTSIDE OF THE [place] IN LAST 30 DAYS: No - Related Data Allergies/Adverse Reactions: Penicillins Allergy (Severe, Verified 04/08/20 13:58) swells the throat cillins Allergy (Uncoded 04/08/20 13:58) Past Medical History - Social History Chew tobacco use (# tins/day): No Frequency of alcohol use: Occasional Drug Abuse: None Renal/ Medical History: Reports: Hx Ovarian Cysts Past Surgical History: Reports: Hx Section - 1 - Immunizations Hx Diphtheria, Pertussis, Tetanus Vaccination: Yes Physical Exam - Vital signs Vitals: Temp Pulse Resp BP Pulse Ox 97.8 F 89 16 119/75 99 04/08/20 13:48 04/08/20 13:48 04/08/20 13:48 04/08/20 13:48 04/08/20 13:48 Course - Vital Signs Vital signs: Temp Pulse Resp BP Pulse Ox 97.8 F 89 16 119/75 99 04/08/20 13:48 04/08/20 13:48 04/08/20 13:48 04/08/20 13:48 04/08/20 13:48 Doctor's Discharge - Discharge Referrals: RASHMI MONDRAGON MD [Primary Care Provider] - Follow up as needed
[2020-04-08 14:34] LABS: ABSOLUTE EOSINOPHILS # (AUTO) 0.2 10^3/uL (0.0-0.6); ABSOLUTE MONOCYTES (AUTO) 0.7 10^3/uL (0.1-1.4); ABSOLUTE NEUT (AUTO) 6.2 10^3/uL (1.7-8.2); BASOPHILS % (AUTO) 0.4 % (0-2); HEMATOCRIT 40.9 % (36.0-47.0); HEMOGLOBIN 14.2 g/dL (12.0-15.5); LYMPHOCYTES % (AUTO) 22.2 % (13-45); MEAN CORPUSCULAR HEMOGLOBIN 30.2 pg (27.0-33.4); MEAN CORPUSCULAR HGB CONC 34.7 g/dL (32.0-36.0); MEAN CORPUSCULAR VOLUME 87 fl (80-97); MONOCYTES % (AUTO) 7.1 % (3-13); PLATELET COUNT 273 10^3/uL (150-450); RED BLOOD COUNT 4.71 10^6/uL (3.72-5.28); RED CELL DISTRIBUTION WIDTH 13.3 % (11.5-14.0); SEGMENTED NEUTROPHILS % (AUTO) 68.3 % (42-78); TOTAL CELLS COUNTED % (AUTO) 100 %; WHITE BLOOD COUNT 9.1 10^3/uL (4.0-10.5)
[2020-04-08 14:48] LABS: APPEARANCE,URINE CLEAR; BILIRUBIN,URINE NEGATIVE (NEGATIVE); COLOR,URINE YELLOW; GLUCOSE, URINE NEGATIVE (NEGATIVE); KETONES,URINE TRACE mg/dL (NEGATIVE); LEUKOCYTE ESTERASE,URINE NEGATIVE (NEGATIVE); NITRITE,URINE NEGATIVE (NEGATIVE); PROTEIN,URINE NEGATIVE (NEGATIVE); URINE SPECIFIC GRAVITY 1.025
[2020-04-08 14:51] LABS: ALBUMIN 4.7 g/dL (3.5-5.0); ALKALINE PHOSPHATASE 57 U/L (38-126); ANION GAP 9 (5-19); ASPARTATE AMINO TRANSFERASE 30 U/L (14-36); BILIRUBIN,TOTAL 0.6 mg/dL (0.2-1.3); BLOOD UREA NITROGEN 14 mg/dL (7-20); CARBON DIOXIDE 27 mmol/L (22-30); CHLORIDE 102 mmol/L (98-107); GLUCOSE 118 mg/dL (75-110); POTASSIUM 3.7 mmol/L (3.6-5.0); TOTAL PROTEIN 7.7 g/dL (6.3-8.2)
[2020-04-08] MEDS ORDERED: NORMAL SALINE 1000 ML 1,000 ML IV ONE (15:24)
--- NOTE | 2020-04-08 15:29 | ER Document Report ---
ED General - General Chief Complaint: Weakness Stated Complaint: WEAKNESS Time Seen by Provider: 04/08/20 13:58 Primary Care Provider: RASHMI MONDRAGON MD [Primary Care Provider] - Follow up as needed Mode of Arrival: Ambulatory Information source: Patient Notes: Patient presents complaining of fatigue and weakness for the past 3 weeks. Patient states that the weakness has been worse over the past 3 days. Patient was recently stated negative for Covid 3 days ago as well as 6 days ago. Patient does report positive strep test 3 days ago. Patient has been on antibiotics and still has a few days left. Patient reports occasional shortness of breath without any cough. Patient denies any chest pain. Patient denies any fever or urinary symptoms. Patient denies any nausea vomiting or diarrhea. Patient does report a history of left flank pain that has been there for the past 3 months and she is pending an outpatient ultrasound to evaluate her kidney. TRAVEL OUTSIDE OF THE [place] IN LAST 30 DAYS: No - HPI Onset: Other - 3 Weeks Onset/Duration: Worse Quality of pain: Achy Pain Level: 1 Associated symptoms: Weakness, Other - fatigue. denies: Chills, Nonproductive cough, Productive cough, Diarrhea, Fever, Nausea, Vomiting Exacerbated by: Denies Relieved by: Denies Similar symptoms previously: No Recently seen / treated by doctor: Yes - Related Data Allergies/Adverse Reactions: Penicillins Allergy (Severe, Verified 04/08/20 13:58) swells the throat cillins Allergy (Uncoded 04/08/20 13:58) Past Medical History - General Information source: Patient - Social History Smoking Status: Never Smoker Chew tobacco use (# tins/day): No Frequency of alcohol use: Occasional Drug Abuse: None Occupation: healthcare Lives with: Family Family History: Reviewed & Not Pertinent - Medical History Medical History: Other - Anemia Renal/ Medical History: Reports: Hx Ovarian Cysts Psychiatric Medical History: Reports: Hx Depression - anxiety, Other - Panic attack Past Surgical History: Reports: Hx Section - 1 - Immunizations Hx Diphtheria, Pertussis, Tetanus Vaccination: Yes Review of Systems - Review of Systems Constitutional: Malaise, Weakness EENT: Throat pain. denies: Difficulty swallowing Cardiovascular: No symptoms reported. denies: Chest pain, Dizziness, Lightheaded Respiratory: Short of breath - occasional. denies: Cough Gastrointestinal: No symptoms reported. denies: Abdominal pain, Diarrhea, Nausea, Vomiting Genitourinary: Flank pain - left flank x 3 mo. denies: Dysuria Female Genitourinary: No symptoms reported Musculoskeletal: No symptoms reported Skin: No symptoms reported Hematologic/Lymphatic: No symptoms reported Neurological/Psychological: No symptoms reported Physical Exam - Vital signs Vitals: Temp Pulse Resp BP Pulse Ox 97.8 F 89 16 119/75 99 04/08/20 13:48 04/08/20 13:48 04/08/20 13:48 04/08/20 13:48 04/08/20 13:48 - General General appearance: Appears well, Alert In distress: None - HEENT Head: Normocephalic, Atraumatic Eyes: Normal Conjunctiva: Normal Nasal: Normal Mouth/Lips: Normal Mucous membranes: Normal Pharynx: Erythema. No: Exudate, Retropharyngeal abscess Course - Re-evaluation Re-evalutation: 04/08/20 15:[address] Parker regarding patient presentation and diagnostic evaluation. Agrees with plan for adding thyroid studies and magnesium at this time, no additional tests advised at this time. 04/08/20 16:56 Patient without any acute findings on diagnostic evaluation, aside from positive strep test. Patient had known strep throat and is currently receiving treatment with oral azithromycin. Patient does have several days left of the antibiotic at this time. Patient encouraged to increase oral fluids and stay well-hydr ated. Patient encouraged to follow-up with her primary doctor as planned for her outpatient ultrasound of her left kidney for her chronic left flank pain. Discussed with patient results of her diagnostic evaluation here today. Patient advised of worsening signs or symptoms to return immediately for. Patient relies understanding and is agreeable with discharge plan of care. - Vital Signs Vital signs: Temp Pulse Resp BP Pulse Ox 98.3 F 64 16 113/75 100 04/08/20 17:06 04/08/20 17:06 04/08/20 17:06 04/08/20 17:06 04/08/20 17:06 - Laboratory Result Diagrams: 04/08/20 14:20 04/08/20 14:20 Laboratory results interpreted by me: 04/08/20 04/08/20 14:20 14:20 Glucose 118 H Urine Ketones TRACE H Urine Urobilinogen 2.0 H 04/08/20 16:56 Labs- All tests 24 hr 04/08/20 04/08/20 04/08/20 14:20 14:20 14:20 WBC 9.1 RBC 4.71 Hgb 14.2 Hct 40.9 MCV 87 MCH 30.2 MCHC 34.7 RDW 13.3 Plt Count 273 Lymph % (Auto) 22.2 Cascade % (Auto) 7.1 Eos % (Auto) 2.0 Baso % (Auto) 0.4 Absolute Neuts (auto) 6.2 Absolute Lymphs (auto) 2.0 Absolute Monos (auto) 0.7 Absolute Eos (auto) 0.2 Absolute Basos (auto) 0.0 Seg Neutrophils % 68.3 Sodium 138.4 Potassium 3.7 Chloride 102 Carbon Dioxide 27 Anion Gap 9 BUN 14 Creatinine 0.88 Est GFR ( Amer) > 60 Est GFR (MDRD) Non-Af > 60 Glucose 118 H Calcium 10.0 Magnesium Total Bilirubin 0.6 Direct Bilirubin 0.0 Neonat Total Bilirubin Not Reportable Neonat Direct Bilirubin Not Reportable Neonat Indirect Bili Not Reportable AST 30 ALT 19 Alkaline Phosphatase 57 Total Protein 7.7 Albumin 4.7 Lipase 111.3 TSH Free T4 Free T3 pg/mL Urine Color YELLOW Urine Appearance CLEAR Urine pH 5.0 Ur Specific Maynard 1.025 Urine Protein NEGATIVE Urine Glucose (UA) NEGATIVE Urine Ketones TRACE H Urine Blood NEGATIVE Urine Nitrite NEGATIVE Urine Bilirubin NEGATIVE Urine Urobilinogen 2.0 H Ur Leukocyte Esterase NEGATIVE Urine WBC (Auto) 2 Urine RBC (Auto) 0 Squamous Epi Cells Auto 3 Urine Mucus (Auto) FEW Urine Ascorbic Acid NEGATIVE Urine HCG, Qual NEGATIVE Group A Strep Rapid 04/08/20 04/08/20 04/08/20 14:20 14:20 15:22 WBC RBC Hgb Hct MCV MCH MCHC RDW Plt Count Lymph % (Auto) Cascade % (Auto) Eos % (Auto) Baso % (Auto) Absolute Neuts (auto) Absolute Lymphs (auto) Absolute Monos (auto) Absolute Eos (auto) Absolute Basos (auto) Seg Neutrophils % Sodium Potassium Chloride Carbon Dioxide Anion Gap BUN Creatinine Est GFR ( Amer) Est GFR (MDRD) Non-Af Glucose Calcium Magnesium 2.0 Total Bilirubin Direct Bilirubin Neonat Total Bilirubin Neonat Direct Bilirubin Neonat Indirect Bili AST ALT Alkaline Phosphatase Total Protein Albumin Lipase TSH 2.02 Free T4 0.91 Free T3 pg/mL 3.31 Urine Color Urine Appearance Urine pH Ur Specific Maynard Urine Protein Urine Glucose (UA) Urine Ketones Urine Blood Urine Nitrite Urine Bilirubin Urine Urobilinogen Ur Leukocyte Esterase Urine WBC (Auto) Urine RBC (Auto) Squamous Epi Cells Auto Urine Mucus (Auto) Urine Ascorbic Acid Urine HCG, Qual Group A Strep Rapid POSITIVE - Diagnostic Test Radiology reviewed: Reports reviewed Discharge - Discharge Clinical Impression: Malaise and fatigue, Strep pharyngitis Condition: Stable Disposition: HOME, SELF-CARE Instructions: Fatigue ([facility]), Malaise ([facility]), Strep Throat ([facility]) Additional Instructions: Return immediately for any new or worsening symptoms Followup with your primary care provider, call tomorrow to make a followup appointment Continue your antibiotic treatment as previously prescribed. Referrals: RASHMI MONDRAGON MD [Primary Care Provider] - Follow up as needed
--- NOTE | 2020-04-08 16:11 | RADIOLOGY REPORT (SQ) ---
EXAM DESCRIPTION: CHEST SINGLE VIEW IMAGES COMPLETED DATE/TIME: 04/08/2020 3:37 pm REASON FOR STUDY: occasional sob COMPARISON: None. EXAM PARAMETERS: NUMBER OF VIEWS: One view. TECHNIQUE: Single frontal radiographic view of the chest acquired. RADIATION DOSE: NA LIMITATIONS: None. FINDINGS: LUNGS AND PLEURA: No opacities, masses or pneumothorax. No pleural effusion. MEDIASTINUM AND HILAR STRUCTURES: No masses. Contour normal. HEART AND VASCULAR STRUCTURES: Heart normal in size. Normal vasculature. BONES: No acute findings. HARDWARE: None in the chest. OTHER: No other significant finding. IMPRESSION: NO ACUTE RADIOGRAPHIC FINDING IN THE CHEST. TECHNICAL DOCUMENTATION: JOB ID: [id number] 2010 [employer]- All Rights Reserved Reading location - IP/workstation name: [email or web address]
[2020-04-08 16:16] LABS: FREE T3 3.31 pg/mL (2.77-5.27); FREE T4 (FREE THYROXINE) 0.91 ng/dL (0.78-2.19)
[2020-04-08 16:30] LABS: THYROID STIMULATING HORMONE 2.02 uIU/mL (0.47-4.68)
[2020-04-08 17:10] VITALS: BP 113/75
== END 2020-04-08 17:50 | disposition home or self-care (01) ==
LOC: ER 13:43
DX: J02.0 Streptococcal pharyngitis (principal); R53.1 Weakness
CPT/HCPCS: 99284; 96360; 36415; 84439; 87880; 83690; 83735; 84443; 85025; 81025; 80053; 81001; 84481; 71045; J7030